=== PATIENT | male | born 1985 | race Caucasian/White ===

== ENCOUNTER 2019-04-09 10:15 | Emergency (ER) | payer SELFPAY ==
[2019-04-09] MEDS ORDERED: Ketorolac Tromethamine 30 MG/ML VIAL ONE (11:12)
== END 2019-04-09 11:30 | disposition home or self-care (01) ==
LOC: ERS 10:15
DX: M25.561 Pain in right knee (principal); F17.200 Nicotine dependence, unspecified, uncomplicated
CPT/HCPCS: 96372; 99283; J1885

== ENCOUNTER 2020-11-27 17:06 | Emergency (ER) | payer SELFPAY ==
[~2020-11-27 17:06] MED LIST: Iopamidol-370 76% 500 ML 1 ML ONE
[2020-11-27] MEDS ORDERED: Morphine 4 MG/ML VIAL ONE ×2 (17:48→19:50)
[2020-11-27] MEDS ORDERED: Ondansetron PF 4 MG/2 ML Vial ONE (17:48)
[2020-11-27 18:30] LABS: #Basophils 0.1 thou/uL (0.0-0.2); #Eosinphils 0.2 thou/uL (0.0-0.7); #Monocytes 0.9 thou/uL (0.11-0.59); #Neutrophils 8.2 thou/uL (1.40-6.50); %Basophils 0.6 % (0.0-1.0); %Eosinophils 1.9 % (0.0-10.0); %Lymphocytes 17.7 % (21.0-51.0); %Monocytes 7.6 % (0.0-10.0); %Neutrophils 72.1 % (42.0-75.0); Hemoglobin 14.4 g/dL (14.0-18.0); Mean Corpuscular HGB CONC 33.7 g/dL (32.0-36.0); Mean Platelet Volume 8.6 fL (7.4-10.4); Platelet Count 265 thou/uL (130-400); RBC Distribution Width 11.6 % (11.5-14.5); Red Blood Cell (RBC) Count 4.63 mill/uL (4.70-6.10); White Blood Cell (WBC) Count 11.4 thou/uL (4.8-10.8)
[2020-11-27 18:49] LABS: ALT (SGPT) 105 U/L (8-55); AST (SGOT) 42 U/L (5-34); Albumin 4.2 g/dL (3.5-5.0); Alkaline Phosphatase 91 U/L (40-110); Anion Gap 14 mmol/L (10-20); BUN (Urea Nitrogen) 10 mg/dL (8.9-20.6); Bilirubin, Total 0.6 mg/dL (0.2-1.2); Calc. Creatinine Clearance 0 mL/min (70-130); Calcium 9.6 mg/dL (7.8-10.44); Carbon Dioxide 25 mmol/L (22-29); Chloride 102 mmol/L (98-107); Globulin 2.9 g/dL (2.4-3.5); Glucose 82 mg/dL (70-105); Lipase 64 U/L (8-78); Potassium 3.6 mmol/L (3.5-5.1); Protein, Total 7.1 g/dL (6.0-8.3); Sodium 137 mmol/L (136-145)
== END 2020-11-27 20:22 | disposition home or self-care (01) ==
LOC: ERS 17:06
DX: K57.30 Diverticulosis of large intestine without perforation or abscess without bleeding (principal); K76.0 Fatty (change of) liver, not elsewhere classified
CPT/HCPCS: 36415; 74177; 80053; 83605; 83690; 85025; 96374; 96375; 96376; J2270; J2405; Q9967

== ENCOUNTER 2021-11-15 12:58 | Inpatient (IN) | payer SELFPAY ==
[2021-11-15 14:08] LABS: #Basophils 0.1 thou/uL (0.0-0.2); #Eosinphils 0.3 thou/uL (0.0-0.7); #Lymphocytes 1.7 thou/uL (1.20-3.40); #Monocytes 0.7 thou/uL (0.11-0.59); #Neutrophils 4.8 thou/uL (1.40-6.50); %Basophils 0.8 % (0.0-1.0); %Eosinophils 3.4 % (0.0-10.0); %Lymphocytes 22.9 % (21.0-51.0); %Monocytes 9.5 % (0.0-10.0); %Neutrophils 63.4 % (42.0-75.0); Mean Corpuscular HGB CONC 33.9 g/dL (32.0-36.0); Mean Corpuscular Hemoglobin 32.3 pg (27.0-31.0); Mean Corpuscular Volume 95.2 fL (78.0-98.0); Mean Platelet Volume 8.3 fL (7.4-10.4); Platelet Count 282 thou/uL (130-400); RBC Distribution Width 11.9 % (11.5-14.5); Red Blood Cell (RBC) Count 4.95 mill/uL (4.70-6.10); White Blood Cell (WBC) Count 7.6 thou/uL (4.8-10.8)
[2021-11-15 14:20] LABS: Bilirubin Negative (Negative); Blood, Urine Negative (Negative); Clarity Clear (Clear); Glucose, Urine (Dipstick) Normal (Negative); Ketone, Urine Negative (Negative); Leukocyte Negative Leu/uL (Negative); Nitrite Negative (Negative); Protein, Urine (Dipstick) Negative (Neg-Trace); Specific Gravity, Urine 1.008 (1.002-1.036); Urobilinogen Normal mg/dL (Less than 2)
[2021-11-15 14:27] LABS: ALT (SGPT) 243 U/L (8-55); AST (SGOT) 132 U/L (5-34); Albumin 4.7 g/dL (3.5-5.0); Alkaline Phosphatase 100 U/L (40-110); Anion Gap 11 mmol/L (10-20); BUN (Urea Nitrogen) 10 mg/dL (8.9-20.6); Bilirubin, Total 0.5 mg/dL (0.2-1.2); Calc. Creatinine Clearance 0 mL/min (70-130); Calcium 9.7 mg/dL (7.8-10.44); Carbon Dioxide 28 mmol/L (22-29); Chloride 102 mmol/L (98-107); Globulin 2.7 g/dL (2.4-3.5); Glucose 96 mg/dL (70-105); Lipase 28 U/L (8-78); Magnesium 1.9 mg/dL (1.6-2.6); Potassium 4.1 mmol/L (3.5-5.1); Protein, Total 7.4 g/dL (6.0-8.3); Sodium 137 mmol/L (136-145)
[2021-11-15 14:28] LABS: Acetaminophen Less than 10.0 mcg/mL (10.0-30.0); Alcohol Less than 10 mg/dL (Less than 10); Salicylate Less than 8.0 mg/dL (15.0-30.0)
[2021-11-15 17:22] LABS: Troponin I Less than 0.010 ng/mL (< 0.028)
[2021-11-15] MEDS ORDERED: Acetaminophen 325 MG TAB PO PRN (18:18)
[2021-11-15] MEDS ORDERED: Lorazepam 1 MG TAB PO PRN (18:19)
[2021-11-15] MEDS ORDERED: Lorazepam 2 MG/ML VIAL IM PRN (18:19)
[2021-11-15] MEDS ORDERED: Ondansetron ODT 4 MG TAB PO PRN (18:19)
[2021-11-15] MEDS ORDERED: Nitroglycerin 0.4 MG TAB (25 Tab Bottle) SL PRN (18:20)
[2021-11-15] MEDS ORDERED: Electrolyte Replacement Protocol 1 EACH FS SCH ×2 (18:30→19:00)
[2021-11-15] MEDS ORDERED: hydrALAZINE 20 MG/ML VIAL SLOW IVP PRN (18:50)
[2021-11-15] MEDS ORDERED: Electrolyte Replacement Protocol FS PRN ×2 (19:00→19:15)
[2021-11-15 19:10] LABS: Magnesium 1.7 mg/dL (1.6-2.6); Phosphorus 2.5 mg/dL (2.3-4.7)
[2021-11-15] MEDS: Lorazepam 1 MG TAB PO SCH (19:27)
[2021-11-15] MEDS: Thiamine HCl 200 MG/2 ML VIAL SLOW IVP SCH (19:27)
[2021-11-15] MEDS: Enoxaparin Sodium 40 MG/0.4 ML SYRINGE SC SCH (19:47)
[2021-11-15 20:04] LABS: Troponin I Less than 0.010 ng/mL (< 0.028)
[2021-11-15 20:06] VITALS: BMI 35.4
[2021-11-16] MEDS: Lorazepam 1 MG TAB PO SCH ×4 (00:40→17:35)
[2021-11-16 05:11] LABS: Hemoglobin A1c 5.2 % (4.0-6.0)
[2021-11-16 05:33] LABS: Cardiac Risk 4.5 (Less than 4.5)
[2021-11-16] MEDS: Folic Acid 1 MG TAB PO SCH (08:48)
[2021-11-16] MEDS: Aspirin Chewable 81 MG TAB PO SCH (08:48)
[2021-11-16] MEDS: Multivit, Therapeutic 1 TAB PO SCH (08:48)
[2021-11-16 12:19] LABS: SARS-CoV-2 PCR by NAA Not Detected (NotDetected)
[2021-11-16] MEDS ORDERED: Cyclobenzaprine 10 MG TAB PO PRN (16:03)
[2021-11-16] MEDS ORDERED: Cyclobenzaprine 10 MG TAB PO SCH (16:15)
[2021-11-16] MEDS ORDERED: Lorazepam 1 MG TAB PO PRN (18:19)
[2021-11-16] MEDS: Enoxaparin Sodium 40 MG/0.4 ML SYRINGE SC SCH (20:47)
[2021-11-16] MEDS: Thiamine HCl 200 MG/2 ML VIAL SLOW IVP SCH (20:48)
[2021-11-17] MEDS: Lorazepam 1 MG TAB PO SCH ×3 (04:43→13:37)
[2021-11-17] MEDS: Aspirin Chewable 81 MG TAB PO SCH (05:58)
[2021-11-17] MEDS ORDERED: Nitroglycerin 100MG/250ML BOT 250 ML ONE ×2 (08:25→10:37)
[2021-11-17] MEDS ORDERED: Verapamil 5 MG/2 ML VIAL ONE ×2 (08:25→10:37)
[2021-11-17] MEDS ORDERED: Lidocaine 1% (PF) 30 ML VIAL ONE ×2 (08:25→10:18)
[2021-11-17] MEDS ORDERED: Heparin 10,000 UNITS/ 10 ML VIAL ONE ×2 (08:25→10:37)
[2021-11-17] MEDS: Folic Acid 1 MG TAB PO SCH (09:55)
[2021-11-17] MEDS: Multivit, Therapeutic 1 TAB PO SCH (09:55)
[2021-11-17] MEDS ORDERED: Fentanyl 100 MCG/2 ML VIAL ONE (11:40)
[2021-11-17] MEDS ORDERED: Midazolam HCl 2 mg/2 ml Vial ONE (11:40)
[2021-11-17] MEDS ORDERED: Sodium Chloride 0.9% 200 ML IV PRN (12:33)
[2021-11-17] MEDS ORDERED: Acetaminophen/Codeine 30-300mg Tablet PO PRN (12:33)
[2021-11-17] MEDS ORDERED: Sodium Chloride 0.9% 500 ML IV SCH (12:45)
[2021-11-17 16:27] VITALS: BP 137/87; TEMP 98
[2021-11-17] MEDS ORDERED: Lorazepam 1 MG TAB PO PRN (18:19)
[2021-11-17] MEDS ORDERED: Lorazepam 0.5 MG TAB PO SCH (18:30)
[2021-11-18] MEDS ORDERED: Lorazepam 0.5 MG TAB PO PRN (18:19)
[2021-11-18] MEDS ORDERED: Thiamine 100 MG TAB PO SCH (20:00)
== END 2021-11-17 17:35 | disposition home or self-care (01) | DRG 287 ==
LOC: ERS 12:58 → 2SW 16:01 → OBSVTOIN 11-16 14:45
PROVIDERS: ADMIT Family Medicine; ATTEND Family Medicine
PROC: 4A023N7 Measurement of Cardiac Sampling and Pressure, Left Heart, Percutaneous Approach (ICD-10-PCS; principal; 2021-11-17)
PROC: B2111ZZ Fluoroscopy of Multiple Coronary Arteries using Low Osmolar Contrast (ICD-10-PCS; 2021-11-17)
PROC: B2151ZZ Fluoroscopy of Left Heart using Low Osmolar Contrast (ICD-10-PCS; 2021-11-17)
DX: R55 Syncope and collapse (principal); Z20.822 Contact with and (suspected) exposure to COVID-19; I10 Essential (primary) hypertension; F41.9 Anxiety disorder, unspecified; F32.A Depression, unspecified; Z79.899 Other long term (current) drug therapy; Z87.19 Personal history of other diseases of the digestive system
CPT/HCPCS: 36415; 71045; 71275; 74177; 80053; 80061; 80307; 81003; 83036; 83690; 83735; 84100; 84443; 84484; 85025; 93005; 93306; 93458; 93880; 94760; 99152; J1644; J1650; J2001; J2250; J3010; J3411; U0003; U0005